=== PATIENT | male | born 1960 | race Native Hawaiian/Other Pacific Islander ===

== ENCOUNTER 2020-05-06 07:26 | Emergency (ER) | payer BC ==
[~2020-05-06] VITALS: Ht 188 cm; Wt 127.0 kg
[2020-05-06 07:36] VITALS: BP 198/104; TEMP 98.3
== END 2020-05-06 08:59 | disposition home or self-care (01) ==
LOC: ED 07:26
DX: S29.011A Strain of muscle and tendon of front wall of thorax, initial encounter (principal); X50.0XXA Overexertion from strenuous movement or load, initial encounter; Y92.89 Other specified places as the place of occurrence of the external cause
CPT/HCPCS: 96372; 99282; 99283